=== PATIENT | male | born 1945 | race Hispanic/Latino ===

== ENCOUNTER 2019-05-16 13:18 | Day surgery (SDC) | payer MEDICARE ==
[2019-05-16 14:16] VITALS: BP 127/64
[2019-05-16 14:44] LABS: INR 0.97 (0.85-1.15); PROTHROMBIN TIME 10.2 SEC (9.6-11.6)
== END 2019-05-16 16:20 | disposition home or self-care (01) ==
LOC: DAH 13:18
PROVIDERS: ATTEND Family Medicine
DX: Z45.2 Encounter for adjustment and management of vascular access device (principal)
CPT/HCPCS: 36415; 36573; 71045; 85610; A4606; C1894; 36569; 76937

== ENCOUNTER 2019-08-01 08:42 | Day surgery (SDC) | payer MEDICARE ==
[2019-08-01 09:30] VITALS: BP 92/47
[2019-08-01 09:42] LABS: INR 0.96 (0.85-1.15); PROTHROMBIN TIME 10.1 SEC (9.6-11.6)
== END 2019-08-01 13:30 | disposition home or self-care (01) ==
LOC: DAH 08:42
PROVIDERS: ATTEND Family Medicine
DX: N39.0 Urinary tract infection, site not specified (principal)
CPT/HCPCS: 36415; 36573; 71045; 76937; 85610; C1894; 36569

== ENCOUNTER → 2022-08-13 | Outpatient (CLI) | payer MEDICARE | END | disposition home or self-care (01) | LOC: RAH 13:13 | PROVIDERS: ATTEND Family Medicine | DX: G45.9 Transient cerebral ischemic attack, unspecified (principal); R29.810 Facial weakness | CPT/HCPCS: 93880 ==